=== PATIENT | female | born 1965 | race Caucasian/White ===

== ENCOUNTER 2019-04-27 13:37 | Emergency (ER) | payer OTHER ==
[2019-04-27] MEDS ORDERED: OXYCODONE-ACETAMINOPHEN 5-325 MG TABLET PO ONE (15:48)
--- NOTE | 2019-04-27 15:48 | ER Document Report ---
ED Medical Screen (RME) - General Chief Complaint: Abscess Stated Complaint: ABSCESS Time Seen by Provider: 04/27/19 15:44 Mode of Arrival: Ambulatory Information source: Patient Notes: 53-year-old female presented to ED for an abscess to her tailbone. She states she has a pilonidal cyst. She just came from urgent care. She states this is the first time she has had one. She is alert oriented respirations regular and unlabored speaking in full sentences. She states it is very painful. I have greeted and performed a rapid initial assessment of this patient. A comprehensive ED assessment and evaluation of the patient, analysis of test results and completion of medical decision making process will be conducted by an additional ED providers. Physical Exam - Vital signs Vitals: Temp Pulse Resp BP Pulse Ox 99.3 F 107 H 18 144/90 H 97 04/27/19 13:45 04/27/19 13:45 04/27/19 13:45 04/27/19 13:45 04/27/19 13:45 Course - Vital Signs Vital signs: Temp Pulse Resp BP Pulse Ox 99.3 F 107 H 18 144/90 H 97 04/27/19 13:45 04/27/19 13:45 04/27/19 13:45 04/27/19 13:45 04/27/19 13:45
[2019-04-27 16:33] LABS: ABSOLUTE EOSINOPHILS # (AUTO) 0.1 10^3/uL (0.0-0.6); ABSOLUTE LYMPHOCYTES (AUTO) 2.9 10^3/uL (0.5-4.7); ABSOLUTE MONOCYTES (AUTO) 1.7 10^3/uL (0.1-1.4); ABSOLUTE NEUT (AUTO) 12.6 10^3/uL (1.7-8.2); BASOPHILS % (AUTO) 0.2 % (0-2); EOSINOPHILS % (AUTO) 0.5 % (0-6); HEMATOCRIT 41.5 % (36.0-47.0); HEMOGLOBIN 13.6 g/dL (12.0-15.5); LYMPHOCYTES % (AUTO) 16.5 % (13-45); MEAN CORPUSCULAR HEMOGLOBIN 29.2 pg (27.0-33.4); MEAN CORPUSCULAR HGB CONC 32.8 g/dL (32.0-36.0); MEAN CORPUSCULAR VOLUME 89 fl (80-97); PLATELET COUNT 320 10^3/uL (150-450); RED BLOOD COUNT 4.66 10^6/uL (3.72-5.28); RED CELL DISTRIBUTION WIDTH 13.9 % (11.5-14.0); SEGMENTED NEUTROPHILS % (AUTO) 72.8 % (42-78); TOTAL CELLS COUNTED % (AUTO) 100 %; WHITE BLOOD COUNT 17.3 10^3/uL (4.0-10.5)
[2019-04-27 16:46] LABS: ALBUMIN 4.3 g/dL (3.5-5.0); ALKALINE PHOSPHATASE 125 U/L (38-126); ANION GAP 9 (5-19); ASPARTATE AMINO TRANSFERASE 39 U/L (14-36); BILIRUBIN,DIRECT 0.1 mg/dL (0.0-0.4); BILIRUBIN,TOTAL 0.4 mg/dL (0.2-1.3); BLOOD UREA NITROGEN 12 mg/dL (7-20); CALCIUM 9.7 mg/dL (8.4-10.2); CARBON DIOXIDE 29 mmol/L (22-30); CHLORIDE 100 mmol/L (98-107); GLUCOSE 83 mg/dL (75-110); POTASSIUM 4.2 mmol/L (3.6-5.0); TOTAL PROTEIN 7.4 g/dL (6.3-8.2)
[2019-04-27 16:56] LABS: APPEARANCE,URINE SLIGHTLY-CLOUDY; BILIRUBIN,URINE NEGATIVE (NEGATIVE); COLOR,URINE YELLOW; GLUCOSE, URINE 150 mg/dL (NEGATIVE); KETONES,URINE NEGATIVE (NEGATIVE); LEUKOCYTE ESTERASE,URINE NEGATIVE (NEGATIVE); NITRITE,URINE NEGATIVE (NEGATIVE); PROTEIN,URINE NEGATIVE (NEGATIVE); URINE SPECIFIC GRAVITY 1.024; UROBILINOGEN,URINE NEGATIVE mg/dL (<2.0)
[2019-04-27] MEDS ORDERED: HYDROMORPHONE HCL INJ/PF 2 MG/ML AMPULE IV ONE (20:27)
[2019-04-27] MEDS ORDERED: LIDOCAINE 1% INJ-PF (10 MG/ML) 30 ML SDV INJ ONE (20:28)
[2019-04-27] MEDS ORDERED: ONDANSETRON HCL INJ/PF 4 MG/2 ML SDV IV ONE (20:28)
--- NOTE | 2019-04-27 20:29 | ER Document Report ---
ED Skin Rash/Insect Bite/Abscs - General Chief Complaint: Abscess Stated Complaint: ABSCESS Time Seen by Provider: 04/27/19 15:44 Primary Care Provider: [facility] [Provider Group] - Follow up as needed Mode of Arrival: Ambulatory Notes: Patient is a 53-year-old female that comes to the emergency department for chief complaint of an infected, red, tender area over the left upper buttock area. She states that this is been worsening for the past 3 or 4 days. She denies history of the same. She states it has drained a little bit. She denies fever/chills, nausea/vomiting, or any other complaints. She denies a history of diabetes. TRAVEL OUTSIDE OF THE [place] IN LAST 30 DAYS: No - Related Data Allergies/Adverse Reactions: No Known Allergies Allergy (Unverified 04/27/19 15:51) Past Medical History - General Information source: Patient - Social History Smoking Status: Never Smoker Chew tobacco use (# tins/day): No Drug Abuse: None Lives with: Family Family History: Reviewed & Not Pertinent Patient has suicidal ideation: No Patient has homicidal ideation: No - Immunizations Immunizations up to date: Yes Hx Diphtheria, Pertussis, Tetanus Vaccination: Yes Review of Systems - Review of Systems Constitutional: No symptoms reported EENT: No symptoms reported Cardiovascular: No symptoms reported Respiratory: No symptoms reported Gastrointestinal: No symptoms reported Genitourinary: No symptoms reported Female Genitourinary: No symptoms reported Musculoskeletal: No symptoms reported Skin: See HPI Hematologic/Lymphatic: No symptoms reported Neurological/Psychological: No symptoms reported Physical Exam - Vital signs Vitals: Temp Pulse Resp BP Pulse Ox 99.3 F 107 H 18 144/90 H 97 04/27/19 13:45 04/27/19 13:45 04/27/19 13:45 04/27/19 13:45 04/27/19 13:45 - Notes Notes: GENERAL: Alert, interacts well. Sitting awkwardly on the bed HEAD: Normocephalic, atraumatic. EYES: Pupils equal, round, and reactive to light. Extraocular movements intact. ENT: Oral mucosa moist, tongue midline. Oropharynx unremarkable. Airway patent. LUNGS: Clear to auscultation bilaterally, no wheezes, rales, or rhonchi. No respiratory distress. HEART: Regular rate and rhythm. No murmur ABDOMEN: Soft, non-tender. Non-distended. RECTAL: Rectal examination shows small external hemorrhoid but is otherwise unremarkable. There is no induration or fluctuance around the perianal area. Superior to this at the left upper gluteal cleft in the pilonidal area there is an indurated, fluctuant, tender, erythematous area consistent with pilonidal cyst abscess and some cellulitis. Exam performed with [facility] at bedside. EXTREMITIES: Moves all 4 extremities spontaneously. No edema, normal radial and dorsalis pedis pulses bilaterally. No cyanosis. BACK: no cervical, thoracic, lumbar midline tenderness. No saddle anesthesia, normal distal neurovascular exam. NEUROLOGICAL: Alert and oriented x3. Normal speech. Cranial nerves II through XII grossly intact. PSYCH: Normal affect, normal mood. SKIN: Warm, dry, normal turgor. No rashes or lesions noted. Course - Re-evaluation Re-evalutation: Patient with a pilonidal cyst abscess on evaluation. This already open and drain, closed again, and then when I reopened it it drained an additional 5 cc of purulent material or so. Because there is some surrounding cellulitis patient want to be placed on antibiotics. No evidence of perianal abscess or other abnormality. Patient remains very well-appearing. Discussed treatment, follow-up, expectations, surgical clinic follow-up, and return precautions. Patient states understanding and agreement. - Vital Signs Vital signs: Temp Pulse Resp BP Pulse Ox 98.6 F 84 14 145/76 H 100 04/27/19 22:32 04/27/19 22:32 04/27/19 22:32 04/27/19 22:32 04/27/19 18:55 - Laboratory Result Diagrams: 04/27/19 15:53 04/27/19 15:53 Laboratory results interpreted by me: 04/27/19 04/27/19 04/27/19 15:53 15:53 15:53 WBC 17.3 H Absolute Neuts (auto) 12.6 H Absolute Monos (auto) 1.7 H AST 39 H Urine Glucose (UA) 150 H Procedures - Incision and Drainage Left pilonidal cyst abscess Type: Single Anesthetic type: 1% Lidocaine mL's of anesthetic: 8 Blade size: 11 I&D procedure: Shurclens applied, Sterile dressing applied Incision Method: Incision made by scalpel Amount/type of drainage: About 5 cc of purulent drainage Discharge - Discharge Clinical Impression: Pilonidal cyst with abscess Condition: Stable Disposition: HOME, SELF-CARE Additional Instructions: You have a pilonidal cyst with abscess and some localized cellulitis. Take the antibiotics as prescribed. Keep area clean, clean with soapy water, keep absorbing gauze over the area. Symptoms should gradually resolve with time. This may continue to recur, you may need to follow-up with the listed surgical clinic referral for definitive management. Come back if you are worse including spreading redness, increased pain, fever/chills, nausea/vomiting, or any other concerning or worsening symptoms. Prescriptions: Sulfamethoxazole/Trimethoprim [Bactrim Ds Tablet] 1 each PO BID #14 tablet Cephalexin Monohydrate [Keflex 500 mg Capsule] 500 mg PO QID #28 capsule Oxycodone HCl/Acetaminophen [Percocet 5-325 mg Tablet] 1 - 2 tab PO TID PRN #10 tablet PRN Reason: Forms: Return to Work Referrals: [facility] [Provider Group] - Follow up as needed
[2019-04-27] MEDS ORDERED: ONDANSETRON HCL INJ/PF 4 MG/2 ML SDV ONE (20:33)
[2019-04-27] MEDS ORDERED: FENTANYL CITRATE INJ/PF 100 MCG/2 ML AMPUL IV ONE (20:57)
[2019-04-27] MEDS ORDERED: CEPHALEXIN 500 MG CAPSULE PO ONE (21:55)
[2019-04-27] MEDS ORDERED: SULFAMETHOXAZOLE/TRIMETHOPRIM 800-160 MG TABLET PO ONE (21:55)
[2019-04-27] MEDS ORDERED: HYDROCODONE/ACETAMINOPHEN 5-325 MG (6 TAB/ER DISP) PO PRN (21:55)
[2019-04-27 22:34] VITALS: BP 145/76
== END 2019-04-27 22:32 | disposition home or self-care (01) ==
LOC: ER 13:37
DX: L05.01 Pilonidal cyst with abscess (principal); L03.90 Cellulitis, unspecified; K64.4 Residual hemorrhoidal skin tags
CPT/HCPCS: 99283; 96374; 96375; 36415; 85025; 80053; 81001; 10080; A6266; J3010; J3490; J1170; J2405